=== PATIENT | female | born 1955 | race Caucasian/White ===

== ENCOUNTER → 2020-02-18 | Outpatient (REF) | payer BC ==
[2020-02-18 17:48] LABS: PLATELET COUNT, AUTOMATED 146 10^3/uL (150-450)
[2020-02-18 17:49] LABS: INR 1.04; PROTHROMBIN TIME 13.8 SECONDS (12.5-14.3)
[2020-02-18 17:50] LABS: PARTIAL THROMBOPLASTIN TIME 32.3 SECONDS (24.2-38.5)
== END ==
LOC: M LAB REF 16:59
PROVIDERS: ATTEND Internal Medicine Pulmonary Disease
DX: R91.1 Solitary pulmonary nodule (principal)

== ENCOUNTER 2021-02-07 07:11 | Day surgery (SDC) | payer BC ==
[~2021-02-07] VITALS: Ht 165.1 cm; Wt 54.0 kg
[~2021-02-07 07:11] MED LIST: ALBUTEROL SULFATE 2.5 MG/0.5 ML INH NEB SOLN INH ONE; ATOR1TAB19 PO; LIDOCAINE 1% MDV 20ML VIAL SQ PRN; LIDOCAINE 4% INJ 5ML AMP NEB ONE; LR 1,000 ML IV ONE; METO1TAB7 PO; TAMS1CAP17 PO
[2021-02-07] MEDS ORDERED: THROMBIN SOLN 20,000 UNITS KIT As Ordered ONE (08:08)
[2021-02-07] MEDS ORDERED: LIDOCAINE VISCOUS 2% SOLN 15ML UDC As Ordered ONE (08:09)
[2021-02-07] MEDS ORDERED: LIDOCAINE 1% SDV 30ML VIAL As Ordered ONE (08:09)
[2021-02-07] MEDS ORDERED: LIDOCAINE 4% TOPICAL SOLN 50 ML BTL As Ordered ONE (08:09)
[2021-02-07 08:11] LABS: INR 0.95; PROTHROMBIN TIME 13.1 SECONDS (12.7-14.5)
[2021-02-07] MEDS ORDERED: CETACAINE SPRAY 5GM As Ordered ONE (08:11)
[2021-02-07] MEDS ORDERED: THROMBIN SOLN 5,000 UNITS VIAL As Ordered ONE (08:11)
[2021-02-07] MEDS ORDERED: EPINEPHrine 1MG/10ML SYRINGE 1.5IN As Ordered ONE (08:11)
[2021-02-07 08:12] LABS: PARTIAL THROMBOPLASTIN TIME 30.1 SECONDS (25.9-37.0)
[2021-02-07] MEDS ORDERED: MIDAZOLAM INJ 2MG/2ML VIAL (J2250 PER 1MG) As Ordered ONE (08:42)
[2021-02-07] MEDS ORDERED: fentaNYL 100 MCG/2 ML INJECTION As Ordered ONE (08:42)
[2021-02-07] MEDS ORDERED: ROCURONIUM BROMIDE 50 MG/5 ML VIAL As Ordered ONE (08:43)
[2021-02-07] MEDS ORDERED: propofoL 200 MG/20 ML VIAL As Ordered ONE (08:44)
[2021-02-07] MEDS ORDERED: LIDOCAINE 2% 100MG/5ML SDV (FOR ANES.) As Ordered ONE (08:44)
[2021-02-07] MEDS ORDERED: ONDANSETRON 4MG/2ML VIAL As Ordered ONE (09:08)
[2021-02-07] MEDS ORDERED: dexameTHASONE 4 MG/ML 1ML VIAL (J1100 PER 1MG) As Ordered ONE (09:08)
[2021-02-07] MEDS ORDERED: SUGAMMADEX SODIUM 500 MG/5 ML VIAL (BRIDION) As Ordered ONE (09:26)
[2021-02-07] MEDS ORDERED: GLYCOPYRROLATE INJ 0.2 MG/ML 2 ML VIAL As Ordered ONE (09:26)
[2021-02-07] MEDS ORDERED: NALOXONE INJ 0.4MG/1ML VIAL (J2310 PER 1MG) As Ordered ONE ×2 (09:33→09:37)
[2021-02-07] MEDS ORDERED: fentaNYL 100 MCG/2 ML INJECTION IV PRN (10:35)
[2021-02-07] MEDS ORDERED: ONDANSETRON 4MG/2ML VIAL IV PRN (10:35)
[2021-02-07] MEDS ORDERED: LR 1,000 ML IV SCH (10:35)
[2021-02-07] MEDS ORDERED: oxyCODONE 5MG TAB PO PRN (10:35)
[2021-02-07 10:50] VITALS: BP 176/78
== END 2021-02-07 11:05 | disposition home or self-care (01) ==
LOC: M SDC 07:11
PROVIDERS: ATTEND Internal Medicine Pulmonary Disease
DX: C77.1 Secondary and unspecified malignant neoplasm of intrathoracic lymph nodes (principal); J44.9 Chronic obstructive pulmonary disease, unspecified; Z85.89 Personal history of malignant neoplasm of other organs and systems; Z85.118 Personal history of other malignant neoplasm of bronchus and lung; Z92.3 Personal history of irradiation; Z92.21 Personal history of antineoplastic chemotherapy; F17.218 Nicotine dependence, cigarettes, with other nicotine-induced disorders; I10 Essential (primary) hypertension; E78.5 Hyperlipidemia, unspecified; I25.10 Atherosclerotic heart disease of native coronary artery without angina pectoris; I73.9 Peripheral vascular disease, unspecified; Z79.899 Other long term (current) drug therapy; N40.0 Benign prostatic hyperplasia without lower urinary tract symptoms
CPT/HCPCS: 31652; 36415; 85610; 85730; 88173; 88305; 88341; 88342; J1100; J2250; J2310; J2405; J3010